=== PATIENT | male | born 1990 | race Caucasian/White ===

== ENCOUNTER 2018-01-17 20:30 | Outpatient (CLI) | payer OTHER | END 2018-01-17 20:31 | disposition home or self-care (01) | LOC: SLEEPLAB 20:30 | PROVIDERS: ATTEND Family Medicine | DX: G47.33 Obstructive sleep apnea (adult) (pediatric) (principal); R53.83 Other fatigue; G31.84 Mild cognitive impairment of uncertain or unknown etiology; R06.83 Snoring; F41.9 Anxiety disorder, unspecified; F32.9 Major depressive disorder, single episode, unspecified; E66.9 Obesity, unspecified; Z68.31 Body mass index [BMI] 31.0-31.9, adult | CPT/HCPCS: 95811 ==

== ENCOUNTER 2018-10-25 09:33 | Outpatient (CLI) | payer BC ==
--- NOTE | 2018-10-25 09:51 | RAD ---
Lumbar spine 3 views: 10/25/2018 COMPARISON: None HISTORY: Back pain with right-sided radiculopathy FINDINGS: 5 lumbar type vertebral bodies are present with intact pedicles on frontal imaging. Lateral examination demonstrates normal vertebral body height and alignment. No acute osseous abnormality. IMPRESSION: No acute findings.
== END 2018-10-25 09:34 | disposition home or self-care (01) ==
LOC: SCSRAD 09:33
PROVIDERS: ATTEND Physician Assistant
DX: M54.41 Lumbago with sciatica, right side (principal)
CPT/HCPCS: 72100